=== PATIENT | female | born 1980 | race Caucasian/White ===

== ENCOUNTER 2018-01-25 16:45 | Emergency (ER) | payer OTHER, SELFPAY ==
[2018-01-25 18:16] LABS: Absolute Lymphocytes (CBC) 1.1 K/uL (0.7-4.9); Absolute Monocytes 0.5 K/uL (0.1-1.3); Absolute Neutrophil 3.2 K/uL (1.8-8.0); Basophils % 0.2 % (0-1.3); Eosinophils % 0.7 % (0-4.4); Lymphocytes % 22.5 % (15.3-44.8); MCH 27.9 pg (27.0-35.0); MCV 83.5 fL (80-100); MPV 9.3 fL (7.6-11.3); Monocytes % 9.5 % (3.3-12.3); RBC Red Blood Cell Count 4.56 M/uL (3.86-4.86)
[2018-01-25 18:20] LABS: Protime INR 1.15
[2018-01-25 18:22] LABS: BUN Blood Urea Nitrogen 8 mg/dL (6-20); Glucose Level 98 mg/dL (65-120)
[2018-01-25 18:44] LABS: Bicarbonate 27 mEq/L (21-31); Sodium Level 137 mEq/L (135-145)
[2018-01-25 18:45] LABS: Urine Blood NEGATIVE (NEG); Urine Glucose NEGATIVE (NEG); Urine Protein 1+ (NEG); Urine Specific Gravity 1.025 (1.005-1.030); Urine pH 6.5 (5.0-7.0)
[2018-01-25 19:19] LABS: Urine Bacteria 20-50 /HPF (<20); Urine Culture Reflex Order NOT NEEDED; Urine RBC <5 /HPF (NONE SEEN)
[2018-01-25] MEDS ORDERED: POTASSIUM CL SA 10 MEQ TAB PO ONE (19:35)
--- NOTE | 2018-01-25 20:23 | EDPHYS ---
Physician Documentation [facility] Name: Cece Duff Age: 37 yrs Sex: Female : 1980 Arrival Date: 01/25/2018 Time: 16:49 Bed 8 Private MD: ED Physician Daniel Dick HPI: 01/25 17:20 This 37 yrs old Female presents to ER via Ambulatory with complaints of cp Vaginal Bleeding. 17:20 The patient presents with vaginal bleeding that is heavy, with clots, patient reports cp changing pad and tampon every hour today. Onset: The symptoms/episode began/occurred 5 day(s) ago. 17:20 Associated signs and symptoms: Pertinent negatives: constipation, dysuria, fever. cp Severity of symptoms: in the emergency department the symptoms have improved. 17:20 The patient's method of control includes recently stopped taking OCP. cp MANNEQUIN MOUNTER: 16:56 LMP 01/13/2018 aj Historical: - Allergies: 16:56 No Known Allergies; aj - Home Meds: 16:56 None [Active]; aj - PMHx: 16:56 None; aj - PSHx: 16:56 None; aj - Immunization history:: Adult Immunizations up to date. - Social history:: Smoking status: Patient uses tobacco products, smokes one-half pack cigarettes per day. ROS: 17:25 Constitutional: Negative for body aches, chills, fever, poor PO intake. cp 17:25 Eyes: Negative for injury, pain, redness, and discharge. cp 17:25 Cardiovascular: Negative for chest pain, edema, palpitations. 17:25 Respiratory: Negative for cough, shortness of breath, wheezing. 17:25 Abdomen/GI: Positive for abdominal pain, of the right lower quadrant and left lower quadrant, Negative for nausea, vomiting, and diarrhea. 17:25 Back: Negative for radiated pain. 17:25 : Positive for vaginal bleeding, Negative for urinary symptoms. 17:25 Neuro: Negative for altered mental status, dizziness, headache, syncope, near syncope, weakness. 17:25 All other systems are negative. Exam: 17:35 Constitutional: The patient appears in no acute distress, alert, awake, non-toxic, well cp developed, well nourished. 17:35 Head/Face: Normocephalic, atraumatic. Eyes: Pupils equal round and reactive to light, cp extra-ocular motions intact. Lids and lashes normal. Conjunctiva and sclera are non-icteric and not injected. Cornea within normal limits. Periorbital areas with no swelling, redness, or edema. ENT: Nares patent. No nasal discharge, no septal abnormalities noted. Tympanic membranes are normal and external auditory canals are clear. Oropharynx with no redness, swelling, or masses, exudates, or evidence of obstruction, uvula midline. Mucous membranes moist. Chest/axilla: Normal chest wall appearance and motion. Nontender with no deformity. No lesions are appreciated. Cardiovascular: Regular rate and rhythm with a normal S1 and S2. No gallops, murmurs, or rubs. Normal PMI, no JVD. No pulse deficits. Respiratory: Lungs have equal breath sounds bilaterally, clear to auscultation and percussion. No rales, rhonchi or wheezes noted. No increased work of breathing, no retractions or nasal flaring. 17:35 Abdomen/GI: Inspection: abdomen appears normal, Bowel sounds: active, all quadrants, Palpation: soft, in all quadrants, mild abdominal tenderness, in the right lower quadrant and left lower quadrant, rebound tenderness, is not appreciated, voluntary guarding, is not appreciated, involuntary guarding, is not appreciated. 17:35 Back: CVA tenderness, is absent. 17:35 Skin: cellulitis, is not appreciated, no rash present. 17:35 Neuro: Orientation: to person, place \T\ time. Mentation: is normal, Cerebellar function: is grossly normal, Motor: moves all fours, strength is normal, Sensation: no obvious gross deficits. 20:20 : Pelvic Exam: The exam is refused by the patient/guardian. The risks and cp consequences are understood by the patient. Vital Signs: 16:56 BP 131 / 80; Pulse 90; Resp 18; Temp 98.3; Pulse Ox 98% on R/A; Weight 72.57 kg; Height aj 5 ft. 2 in. (157.48 cm); Pain 0/10; 18:01 BP 121 / 91 Supine; Pulse 71; jb1 18:01 BP 121 / 94 Sitting; Pulse 65; jb1 18:01 BP 124 / 98 Standing; Pulse 70; jb1 19:29 Pulse 77; Resp 16; Pulse Ox 98% on R/A; mt 16:56 Body Mass Index 29.26 (72.57 kg, 157.48 cm) aj MDM: 17:08 Patient medically screened. cp 18:00 Differential diagnosis: malignancy, menometrorrhagia, menorrhea, ovarian cyst, pelvic cp inflammatory disease, uterine fibroids, urinary tract infection, vaginosis, anemia. 20:18 Data reviewed: vital signs, nurses notes, lab test result(s), radiologic studies, cp ultrasound. 20:18 Counseling: I had a detailed discussion with the patient and/or guardian regarding: the cp historical points, exam findings, and any diagnostic results supporting the discharge/admit diagnosis, radiology results, the need for outpatient follow up, an OB/Gyne specialist, to return to the emergency department if symptoms worsen or persist or if there are any questions or concerns that arise at home. 01/25 17:16 Order name: Basic Metabolic Panel; Complete Time: 19:16 01/25 19:55 Interpretation: Normal except: K 3.0. 01/25 17:16 Order name: CBC with Diff; Complete Time: 19:16 01/25 17:16 Order name: Type And Screen; Complete Time: 19:16 cp 01/25 17:16 Order name: PT-INR; Complete Time: 19:16 cp 01/25 17:16 Order name: Ptt, Activated; Complete Time: 19:16 01/25 18:16 Order name: Urine Culture [facility] 01/25 17:16 Order name: Orthostatics; Complete Time: 18:02 01/25 17:16 Order name: Urine Test (obtain specimen); Complete Time: 19:32 01/25 17:16 Order name: IV Saline Lock; Complete Time: 18:02 cp 01/25 18:16 Order name: Urine Microscopic Only; Complete Time: 19:54 [facility] 01/25 19:54 Interpretation: Normal except: UWBC 5-10; UBACT 20-50; SQEPI 5-10. 01/25 18:22 Order name: Urine Dipstick--Ancillary (enter results); Complete Time: 19:16 mw2 01/25 20:03 Interpretation: Normal except: UPROT 1+; UESTR TRACE. 01/25 18:22 Order name: Urine --Ancillary (enter results); Complete Time: 19:16 mw2 01/25 19:17 Order name: US Transvaginal Study (Probe) 01/25 20:01 Order name: ABO/RH no charge; Complete Time: 20:03 EDDE 01/25 17:16 Order name: Labs collected and sent; Complete Time: 18:02 cp 01/25 17:16 Order name: NPO; Complete Time: 18:02 cp 01/25 17:16 Order name: Urine Dipstick-Ancillary (obtain specimen); Complete Time: 19:32 cp 01/25 17:16 Order name: Cath; Complete Time: 19:32 cp 01/25 17:16 Order name: Pelvic Exam Setup; Complete Time: 19:31 cp Administered Medications: No medications were administered Disposition: 01/25/18 20:22 Discharged to Home. Impression: Abnormal uterine and vaginal bleeding, unspecified. - Condition is Stable. - Discharge Instructions: Abnormal Uterine Bleeding. - Medication Reconciliation Form, Thank You Letter, Antibiotic Education, Prescription Opioid Use form. - Follow up: Private Physician; When: Primary MANNEQUIN MOUNTER; Reason: Recheck today's complaints, next 2-3 days. - Problem is new. - Symptoms have improved. Addendum: 01/27/2018 06:44 Co-signature as Attending Physician, Daniel Dick MD I agree with the assessment and w a plan of care. Signatures: Dispatcher [employer] EDDE Gabrielle Norwood RN RN Mango George PA PA cp Knox, Taylor, RN RN tl2 Daniel Dick MD MD wy Corrections: (The following items were deleted from the chart) 01/25 19:55 19:55 Normal except. cp cp 20:49 20:22 01/25/2018 20:22 Discharged to Home. Impression: Abnormal uterine and vaginal tl2 bleeding, unspecified. Condition is Stable. Forms are Medication Reconciliation Form, Thank You Letter, Antibiotic Education, Prescription Opioid Use. Follow up: Private Physician; When: Primary MANNEQUIN MOUNTER; Reason: Recheck today's complaints, next 2-3 days. Problem is new. Symptoms have improved. cp
--- NOTE | 2018-01-25 20:23 | ER ---
Nurse's Notes [facility] Name: Cece Duff Age: 37 yrs Sex: Female : 1980 Arrival Date: 01/25/2018 Time: 16:49 Bed 8 Private MD: Diagnosis: Abnormal uterine and vaginal bleeding, unspecified Presentation: 01/25 16:54 Presenting complaint: Patient states: Patient reports heavy vaginal bleeding that aj started 5 days ago. Transition of care: patient was not received from another setting of care. Onset of symptoms was January 21, 2018. Initial Sepsis Screen: Does the patient meet any 2 criteria? No. Patient's initial sepsis screen is negative. Does the patient have a suspected source of infection? No. Patient's initial sepsis screen is negative. Care prior to arrival: None. 16:54 Method Of Arrival: Ambulatory 16:54 Acuity: CECI 3 aj Triage Assessment: 16:56 General: Appears in no apparent distress. comfortable, Behavior is calm, cooperative, aj appropriate for age. Pain: Complains of pain in pelvis Pain currently is 0 out of 10 on a pain scale. at worst was 7 out of 10 on a pain scale. Neuro: Level of Consciousness is awake, alert, obeys commands, Oriented to person, place, time, situation, Appropriate for age. Respiratory: Airway is patent Respiratory effort is even, unlabored, Respiratory pattern is regular, symmetrical. : Reports vaginal bleeding that is bright red. Derm: Skin is intact, is healthy with good turgor, Skin is pink, warm \T\ dry. normal. [employer]: 16:56 LMP 01/13/2018 Historical: - Allergies: 16:56 No Known Allergies; aj - Home Meds: 16:56 None [Active]; aj - PMHx: 16:56 None; aj - PSHx: 16:56 None; aj - Immunization history:: Adult Immunizations up to date. - Social history:: Smoking status: Patient uses tobacco products, smokes one-half pack cigarettes per day. Screenin:48 Abuse screen: Denies threats or abuse. Nutritional screening: No deficits noted. tl2 Tuberculosis screening: No symptoms or risk factors identified. Fall Risk None identified. Assessment: 19:10 General: Appears in no apparent distress. comfortable, Behavior is calm, cooperative, tl2 appropriate for age. Pain: Denies pain. Neuro: Level of Consciousness is awake, alert, obeys commands, Oriented to person, place, time, situation. Cardiovascular: Denies chest pain. Respiratory: Airway is patent Respiratory effort is even, unlabored, Respiratory pattern is regular, symmetrical. GI: No signs and/or symptoms were reported involving the gastrointestinal system. : Reports vaginal bleeding that is bright red, heavy flow. Derm: Skin is pink, warm \T\ dry. 20:30 Reassessment: Patient appears in no apparent distress at this time. Patient and/or tl2 family updated on plan of care and expected duration. Pain level reassessed. Patient is alert, oriented x 3, equal unlabored respirations, skin warm/dry/pink. 20:48 Reassessment: Patient appears in no apparent distress at this time. Pt verbalized tl2 understanding of discharge instructions and need for follow up. Vital Signs: 16:56 BP 131 / 80; Pulse 90; Resp 18; Temp 98.3; Pulse Ox 98% on R/A; Weight 72.57 kg; Height aj 5 ft. 2 in. (157.48 cm); Pain 0/10; 18:01 BP 121 / 91 Supine; Pulse 71; jb1 18:01 BP 121 / 94 Sitting; Pulse 65; jb1 18:01 BP 124 / 98 Standing; Pulse 70; jb1 19:29 Pulse 77; Resp 16; Pulse Ox 98% on R/A; mt 16:56 Body Mass Index 29.26 (72.57 kg, 157.48 cm) ED Course: 16:49 Patient arrived in ED. mr 16:56 Triage completed. aj 16:56 Arm band placed on right wrist. Patient placed in an exam room. aj 17:01 Sulaiman Person, RN is Primary Nurse. ae1 17:02 Mango Gan PA is PHCP. cp 17:02 Daniel Dick MD is Attending Physician. cp 18:01 Initial lab(s) drawn, by ar, sent to lab. Inserted saline lock: 22 gauge in left jb1 antecubital area, using aseptic technique. Blood collected. 19:00 Patient has correct armband on for positive identification. Bed in low position. Call tl2 light in reach. 19:00 No provider procedures requiring assistance completed. tl2 19:45 Primary Nurse role handed off by Sulaiman Person, RN rg2 20:01 Transvaginal Study (Probe) In Process Unspecified. EDMS 20:46 Chen Foley, RN is Primary Nurse. tl2 20:48 IV discontinued, intact, bleeding controlled, No redness/swelling at site. Pressure tl2 dressing applied. Administered Medications: No medications were administered Outcome: 20:22 Discharge ordered by . cp 20:48 Discharged to home ambulatory. tl2 20:48 Condition: stable 20:48 Discharge instructions given to patient, Instructed on discharge instructions, follow up and referral plans. Demonstrated understanding of instructions, follow-up care. 20:49 Patient left the ED. tl2 Signatures: Dispatcher [employer] EDMS Ihsan Sears jb1 Gilbert Padilla rg2 Gabrielle Norwood RN RN aj Rivera, Maria mr Mango Gan, GAY PA Chen Rdz RN RN tl2 Sulaiman Person RN RN ae1 Heidi Marcano id Corrections: (The following items were deleted from the chart) 19:30 19:29 BP 124 / 76; Pulse 77bpm; Resp 16bpm; Pulse Ox 98% RA; mt mt
--- NOTE | 2018-01-25 20:48 | RAD REPORT ---
EXAM DESCRIPTION: US - Transvaginal Study Probe - 01/25/2018 8:00 pm CLINICAL HISTORY: Pelvic pain/vaginal bleeding COMPARISON: none FINDINGS: The uterus measures 9 x 5 x 7cm. A fibroid is not seen. The endometrial stripe measures 3 millimeters. Small amount of fluid is present within the endometrium. The right ovary is normal in size and echotexture. A 3.5 centimeter left ovarian cyst is present. Shailesh w is seen within the left ovary. No significant free fluid is seen. IMPRESSION: 3.5 centimeter left ovarian cyst without significant free fluid A small amount of fluid within the endometrium
== END 2018-01-25 20:49 | disposition home or self-care (01) ==
LOC: ER 16:45
DX: N93.9 Abnormal uterine and vaginal bleeding, unspecified (principal); F17.210 Nicotine dependence, cigarettes, uncomplicated
CPT/HCPCS: 36415; 76830; 80048; 81003; 81015; 81025; 85025; 85610; 85730; 86850; 86900; 86901; 87086; 87088; 99284